=== PATIENT | male | born 1950 | race Caucasian/White ===

== ENCOUNTER → 2016-12-18 | Outpatient (CLI) | payer BC ==
[2016-12-18 13:22] LABS: Blood Urea Nitrogen 17 mg/dL (9-20); Non-African American GFR(MDRD) >60 (>60 ml/min/1.73 sqM)
--- NOTE | 2016-12-18 13:56 | CT ---
EXAMINATION TYPE: CT abdomen pelvis wo con DATE OF EXAM: 12/18/2016 1:06 PM HISTORY: Abdominal pain per order. Follow up study for known diverticulitis per patient. CT DLP: 656.1 mGycm. Automated Exposure Control for Dose Reduction was Utilized. TECHNIQUE: CT scan of the abdomen and pelvis is performed with oral but without IV contrast. COMPARISON: NONE FINDINGS: Within the limitations of a non-contrast study, the following observations are made. LUNG BASES: No significant abnormality is appreciated. LIVER/GB: Innumerable low dense lesions scattered throughout the liver consistent with simple thin-wa lled hepatic cysts. PANCREAS: No significant abnormality is seen. SPLEEN: No significant abnormality is seen. ADRENALS: No significant abnormality is seen. KIDNEYS: Kidneys are markedly enlarged in size with innumerable hypodense lesions felt to reflect sim ple cysts. There are nonobstructing renal calculi seen bilaterally with 4-5 calculi felt present, lar gest lower pole level left kidney measures 9 mm on long axis. A few hyperdense lesions are consistent with proteinaceous and/or hemorrhagic cysts, for reference lesion posteriorly lower pole level right kidney on axial image 50. BOWEL: The oral contrast reaches level of the splenic flexure. There is no suspicious small or large bowel dilatation seen. Normal-appearing appendix is seen from low-lying cecum. There is no significan t diverticulosis or CT evidence for acute diverticulitis currently. GENITAL ORGANS: Prostate gland is upper limits of normal in size. LYMPH NODES: No greater than 1cm abdominal or pelvic lymph nodes are appreciated. OSSEOUS STRUCTURES: Straightening of lumbar spine is present. OTHER: No significant additional abnormality is seen. IMPRESSION: 1. No CT evidence for acute diverticulitis currently. No suspicious acute finding is seen to account for patient's symptoms of pain. 2. CT findings consistent with adult type polycystic kidney is present as there are enlarged bilatera l kidneys with innumerable cysts and innumerable thin-walled cysts occupying majority of liver presen t.
--- NOTE | 2016-12-18 16:12 | XR ---
EXAMINATION TYPE: XR chest 2V DATE OF EXAM: 12/18/2016 1:10 PM COMPARISON: NONE HISTORY: Abdominal pain, loss of appetite and weight loss TECHNIQUE: Frontal and lateral views of the chest are obtained. FINDINGS: There is no focal air space opacity, pleural effusion, or pneumothorax seen. The cardiac silhouette size is within normal limits. The osseous structures are intact. IMPRESSION: No acute cardiopulmonary process.
== END ==
LOC: RADCTMAIN 12:33
PROVIDERS: ATTEND Surgery
DX: R10.9 Unspecified abdominal pain (principal)
CPT/HCPCS: 36415; 71020; 74176; 82565; 84520

== ENCOUNTER → 2018-01-30 | Outpatient (CLI) | payer MEDICARE ==
--- NOTE | 2018-01-30 12:55 | US ---
EXAMINATION TYPE: US duplex aorta DATE OF EXAM: 01/30/2018 COMPARISON: CT abdomen and pelvis December 18, 2016 CLINICAL HISTORY: Z87.891 Personal history of nicotine dependence. Midline abdomen pain EXAM MEASUREMENTS: Abdominal Aorta: Proximal: 2.4 x 2.3cm Mid: 1.8 x 2.2cm Distal: 1.7 x 2.2cm Right Iliac: 1.2 x 1.5cm Left Iliac: 1.0 x 1.4cm Limited study due to patient body habitus Visualized portions of abdominal aorta appear wnl Multiple cysts noted within liver and right kidney. IMPRESSION: No aneurysmal change is seen in the visualized abdominal aorta on images saved. Underlyin g polycystic kidney disease adult type is redemonstrated.
== END | disposition home or self-care (01) ==
LOC: RADUSWWP 12:13
PROVIDERS: ATTEND Family Medicine
DX: Z13.6 Encounter for screening for cardiovascular disorders (principal); Z87.891 Personal history of nicotine dependence
CPT/HCPCS: 93979

== ENCOUNTER → 2018-08-21 | Outpatient (CLI) | payer MEDICARE ==
--- NOTE | 2018-08-21 18:11 | CT ---
EXAMINATION TYPE: CT abdomen pelvis wo con DATE OF EXAM: 08/21/2018 COMPARISON: 12/18/2016 HISTORY: RUQ pain CT DLP: 1007 mGycm Automated exposure control for dose reduction was used. TECHNIQUE: Helical acquisition of images was performed from the lung bases through the pelvis. FINDINGS: Lung bases are clear. There is no pleural effusion. Heart size is normal. There is no pericardial eff usion. There is extensive cystic change throughout the liver. There are multiple cysts that measure up to 7 cm in the liver. There is similar extensive cystic replacement of the kidneys. Kidneys are enlarged d ue to extensive polycystic disease. There are bilateral multiple renal calcifications that measure up to 1 cm. Ureters do not appear dilated. There is no retroperitoneal adenopathy. Bladder distends smoothly. There is no inguinal hernia. There is no free fluid in the pelvis. I see n o evidence of a bowel obstruction. The appendix appears normal. Lumbar spine is intact. Bony pelvis i s intact. IMPRESSION: EXTENSIVE POLYCYSTIC DISEASE OF THE KIDNEYS AND LIVER. NO CHANGE COMPARED TO OLD EXAM. NUMEROUS BILAT ERAL RENAL CALCULI WITHOUT EVIDENCE OF OBSTRUCTION. NO SIGNIFICANT CHANGE COMPARED TO OLD EXAM.
== END | disposition home or self-care (01) ==
LOC: RADCTMAIN 16:54
PROVIDERS: ATTEND Family Medicine
DX: N20.0 Calculus of kidney (principal); K76.89 Other specified diseases of liver; N28.1 Cyst of kidney, acquired; J31.2 Chronic pharyngitis
CPT/HCPCS: 74176

== ENCOUNTER → 2018-09-15 | Outpatient (CLI) | payer MEDICARE ==
--- NOTE | 2018-09-15 22:50 | MR ---
EXAMINATION TYPE: MR brain wo/w con DATE OF EXAM: 09/15/2018 COMPARISON: NONE HISTORY: Abnormal findings recent CT abdomen and pelvis, polycystic kidney disease TECHNIQUE: Multiplanar, multisequence images of the brain and brainstem is performed without and with IV contras t, utilizing 9 mL intravenous Gadavist . FINDINGS: Diffusion weighted images demonstrate no evidence of a recent infarct or other diffusion ab normality. There is no worrisome extra-axial fluid signal. This ventricular and sulcal prominence co nsistent with diffuse cerebral atrophy slightly more prominent over the bilateral frontal and tempora l lobes. No significant white matter changes are present. Midline structures demonstrate normal morphology. The craniocervical junction appears within normal limits. Post contrast images demonstrate no abnormal enhancement. Codominant vertebrobasilar system is seen. No large aneurysm is identified. MRA study is noted more sensitive. The dural venous sinuses appear patent. The visualized sinuses are clear and the globes are intact. Slight erosive change ove r left frontal calvarium inner table axial image 22 is present favored benign. This can be correlated with CT if desired. IMPRESSION: 1. Mild to moderate cerebral atrophy most prominent over bilateral frontal and temporal lobes. 2. No obvious large aneurysm. CTA or MRA study is noted more sensitive.
== END ==
LOC: RADMRIMAIN 18:16
PROVIDERS: ATTEND Family Medicine
DX: G31.9 Degenerative disease of nervous system, unspecified (principal); R93.5 Abnormal findings on diagnostic imaging of other abdominal regions, including retroperitoneum
CPT/HCPCS: 82565; 70553; 36415; A9585

== ENCOUNTER 2019-05-14 08:51 | Day surgery (SDC) | payer MEDICARE ==
[2019-05-11 11:15] VITALS: BMI 28.1
[~2019-05-14 08:51] MED LIST: LACTATED RINGERS 1,000 ML IV SCH
[2019-05-14 09:26] VITALS: TEMP 98.2
[2019-05-14] MEDS ORDERED: LIDOCAINE 1% 20 ML VIAL (10MG/ML) FOR IV START INTRADERMA ONE (09:38)
[2019-05-14] MEDS ORDERED: PROPOFOL 10 MG/ML 20 ML VIAL IV ONE (10:32)
[2019-05-14] MEDS ORDERED: LIDOCAINE 1% INJ 10MG/ML (20 ML MDV) ONE (10:32)
--- NOTE | 2019-05-14 10:44 | P.PCN ---
Date of Procedure: 05/14/19 Procedure(s) Performed: BRIEF HISTORY: Patient is a 69-year-old, pleasant, male, scheduled for an upper endoscopy as a part of evaluation of intermittent episodes of epigastric discomfort and long-standing history of GERD. He took Prilosec in the past and had some side effects and stopped the medication a few months ago. Severe diet modification. PROCEDURE PERFORMED: Esophagogastroduodenoscopy with biopsy. PREOPERATIVE DIAGNOSIS: Epigastric discomfort/long-standing history of GERD. IV sedation per anesthesia. PROCEDURE: After informed consent was obtained, the patient was brought into the endoscopy unit. IV sedation was administered by Anesthesia under continuous monitoring. Initially the Olympus GIF-140 video endoscope was inserted into the mouth. Esophagus intubated without any difficulty. It was gradually advanced into the stomach and duodenum and carefully examined. The bulb and the second part of the duodenum appeared normal. The scope at this time was withdrawn to the stomach, adequately insufflated with air, and upon careful examination, mucosa of the antrum, body, cardia and the fundus appeared normal. Multiple small gastric polyps noted in the proximal body the stomach which was biopsied. The scope was then withdrawn into the esophagus. The GE junction was located at 39 cm from the incisors. The esophagus appeared normal. There were no erosions or ulcerations seen, biopsies were done from the distal esophagus and the patient tolerated the procedure well. IMPRESSION: 1. Multiple small gastric polyps. 2. No evidence of esophagitis or peptic ulcer disease. RECOMMENDATIONS: The findings of this examination were discussed with the patient as well as his family. He was advised to follow with the biopsy results. He will use [id number] H2 blockers or antacids as needed for her symptoms..
[2019-05-14 11:04] VITALS: BP 115/77; PULSE 90; RESP 16
== END 2019-05-14 11:45 | disposition home or self-care (01) ==
LOC: ORWHC2ENDO 08:51
PROVIDERS: ATTEND Internal Medicine Gastroenterology
DX: K31.7 Polyp of stomach and duodenum (principal); K21.9 Gastro-esophageal reflux disease without esophagitis; R10.13 Epigastric pain; I10 Essential (primary) hypertension; J45.909 Unspecified asthma, uncomplicated; N42.9 Disorder of prostate, unspecified; Q61.3 Polycystic kidney, unspecified; G31.9 Degenerative disease of nervous system, unspecified; K76.9 Liver disease, unspecified; Z88.0 Allergy status to penicillin; Z88.2 Allergy status to sulfonamides; Z88.5 Allergy status to narcotic agent; Z91.041 Radiographic dye allergy status; Z79.899 Other long term (current) drug therapy
CPT/HCPCS: 88305; 43239; J2001; J2704

== ENCOUNTER → 2021-02-16 | Outpatient (CLI) | payer MEDICARE ==
--- NOTE | 2021-02-16 15:37 | US ---
EXAMINATION TYPE: US kidneys/renal and bladder DATE OF EXAM: 02/16/2021 COMPARISON: CLINICAL HISTORY: R31.9 hematuria. Macroscopic hematuria. No pain. Hx polycystic liver and polycyst ic kidney disease. EXAM MEASUREMENTS: Right Kidney: 16.8 x 9.3 x 9.9 cm Left Kidney: 22.5 x 10.8 x 8.6 cm Right Kidney: Severely enlarged kidney with multiple cysts seen throughout with limited visualization of cortical tissue. Largest cyst lower pole = 9.7 x 9.9 x 8.7 cm. Multiple echogenic foci seen, la rgest= 0.7 cm. Left Kidney: Severely enlarged kidney with multiple cysts seen throughout with limited visualization of cortical tissue. Largest cyst= 10.1 x 8.7 x 7.2 cm. Multiple echogenic foci seen, largest= 0.8 c m. Bladder: distended, anechoic Bilateral Jets seen IMPRESSION: Enlarged multicystic kidneys with likely nephrolithiasis. It is impossible to exclude solid renal maryann plasm. MR with and without contrast could be performed for further evaluation if clinically warranted .
== END | disposition home or self-care (01) ==
LOC: RADUSWWP 14:53
PROVIDERS: ATTEND Family Medicine
DX: Q61.3 Polycystic kidney, unspecified (principal)
CPT/HCPCS: 76770

== ENCOUNTER → 2021-03-16 | Outpatient (CLI) | payer MEDICARE ==
--- NOTE | 2021-03-17 03:06 | MR ---
EXAMINATION TYPE: MR kidney wo/w con DATE OF EXAM: 03/16/2021 COMPARISON: None HISTORY: Disorder of kidney and ureter, blood in urine, history of kidney stones. CONTRAST: Standard multiplanar, multisequence MRI departmental protocol utilizing 8 mL intravenous Gadavist farzaneh olinium contrast. There are numerous cysts throughout both kidneys. These are of variable size and measure up to almost 8 cm and consistent with advanced at all type polycystic kidney disease. There are numerous cysts th roughout the liver which appears enlarged. I do not see any thick walled cyst. Some of the smaller cy sts have increased signal on the T1 images that is consistent with proteinaceous fluid. There is no p athologic renal enhancement. There is no evidence of adrenal mass. I see no retroperitoneal adenopath y. I see no obvious hydronephrosis. There is no ascites. There is no evidence of pancreatic mass. Law creatic duct appears normal. Visualized spleen appears intact. IMPRESSION: Advanced polycystic kidney disease. Advanced polycystic liver disease. No suspicious renal mass. Gisselle l cysts appear not significantly different than old abdomen CT scan 08/21/2018. Renal collecting syst ems are difficult to evaluate. No obvious hydronephrosis.
== END | disposition home or self-care (01) ==
LOC: RADMRIMAIN 18:41
PROVIDERS: ATTEND Family Medicine
DX: Q61.3 Polycystic kidney, unspecified (principal); N28.9 Disorder of kidney and ureter, unspecified
CPT/HCPCS: 74183; A9585

== ENCOUNTER 2022-01-28 00:37 | Emergency (ER) | payer MEDICARE ==
[2022-01-28 00:58] VITALS: RESP 19; TEMP 97.9
--- NOTE | 2022-01-28 01:23 | ED ---
Back Pain HPI - General Chief Complaint: Back Pain/Injury Stated Complaint: Rt Shoulder/Neck Pain Time Seen by Provider: 01/28/22 00:46 Source: patient, RN notes reviewed Limitations: no limitations - History of Present Illness Initial Comments: This is a 71 year old male who presents to the emergency department for right shoulder pain, chest pain, and shortness of breath. Patient states that he feels himself becoming progressively more short of breath with exertion and has had episodes of chest pain, however this has been an ongoing issue for him. Yesterday he had some pain on the posterior aspect of the right shoulder. Today when he woke up he states it was significantly worse. He does note that yesterday he was exercising and doing pushups, and wonders if he may have a muscular strain that is causing his pain. The pain comes and goes with intermittent bouts of radiation down the right arm terminating at the elbow. He would almost describe the pain behind his shoulder as a knot. He is unable to take most medications, particularly NSAIDs and narcotics due to polycystic liver and kidney disease. He does take Tylenol and has already taken 2g today. Denies any fevers, chills, sore throat, cough, palpitations, abdominal pain, nausea, vomiting, diarrhea, back pain, or headaches. MD Complaint: back pain Onset/Timin -: days(s) Treatments Prior to Arrival: acetaminophen - Related Data Home Medications Medication Instructions Recorded Confirmed Finasteride [Proscar] 5 mg PO HS 05/11/19 11/27/21 Tamsulosin HCl [Flomax] 0.4 mg PO 1700 05/11/19 11/27/21 Famotidine [Pepcid] 40 mg PO DAILY 11/23/21 11/27/21 Sennosides [Ex-Lax Maximum 12.5 mg PO DAILY PRN 11/23/21 11/27/21 Strength] amLODIPine [Norvasc] 5 mg PO BID 11/23/21 11/27/21 polyethylene glycoL 3350 [Miralax] 17 gm PO DAILY PRN 11/23/21 11/27/21 Previous Rx's Medication Instructions Recorded Lidocaine 5% Patch [Lidoderm 5% 1 patch TOPICAL DAILY PRN #30 patch 01/28/22 Patch] Metaxalone [Skelaxin] 400 mg PO TID PRN #20 tablet 01/28/22 Allergies Allergy/AdvReac Type Severity Reaction Status Date / Time Iodinated Contrast Media Allergy Dyspnea Verified 01/28/22 00:57 [Iodinated Contrast- Oral and IV Dye] lisinopril Allergy Swelling Verified 01/28/22 00:57 metronidazole [From Flagyl] Allergy severe Verified 01/28/22 00:57 diarrhea,metal taste in mouth Penicillins Allergy Unknown Verified 01/28/22 00:57 Childhood Sulfa (Sulfonamide Allergy Rash/Hives Verified 01/28/22 00:57 Antibiotics) codeine AdvReac Abdominal Verified 01/28/22 00:57 Pain Review of Systems ROS Statement: Those systems with pertinent positive or pertinent negative responses have been documented in the HPI. ROS Other: All systems not noted in ROS Statement are negative. Past Medical History Past Medical History: Asthma, GERD/Reflux, Hypertension, Liver Disease, Prostate Disorder, Renal Disease Additional Past Medical History / Comment(s): POLY CYSTIC KIDNEY AND LIVER DISEASE, IBS, UMBILICAL HERNIA,diverticulitis,chronic constipation History of Any Multi-Drug Resistant Organisms: None Reported Past Surgical History: No Surgical Hx Reported Additional Past Surgical History / Comment(s): nasal surgery Past Anesthesia/Blood Transfusion Reactions: No Reported Reaction Past Psychological History: No Psychological Hx Reported Smoking Status: Former smoker Past Alcohol Use History: None Reported Past Drug Use History: None Reported - Past Family History Mother Family Medical History: No Reported History General Exam Limitations: no limitations General appearance: alert, in no apparent distress Head exam: Present: atraumatic, normocephalic, normal inspection Respiratory exam: Present: normal lung sounds bilaterally. Absent: respiratory distress, wheezes, rales, rhonchi, stridor, chest wall tenderness Cardiovascular Exam: Present: regular rate, normal rhythm, normal heart sounds. Absent: systolic murmur, diastolic murmur, rubs, gallop, clicks Extremities exam: Present: other (Tenderness in the posterior aspect of the right shoulder is intermittently reproducible with elevation of the arm. Full ROM of the arm.) Neurological exam: Present: alert, oriented X3, CN II-XII intact Psychiatric exam: Present: normal affect, normal mood Skin exam: Present: warm, dry, intact, normal color. Absent: rash Course Vital Signs 01/28/22 01/28/22 01/28/22 00:53 01:47 02:00 Temperature 97.9 F Pulse Rate 79 84 Respiratory 19 Rate Blood Pressure 134/88 129/84 O2 Sat by Pulse 97 97 97 Oximetry Medical Decision Making - Medical Decision Making This is a 71-year-old male who presents to the emergency department for right arm/shoulder pain, chest pain, and shortness of breath. I was able to reproduce the shoulder pain twice on examination. Given the chest pain and shortness of breath, will obtain chest x-ray and EKG. x-ray of the chest and shoulder revealed no actionable findings to explain the patient's symptoms. EKG was unremarkable. Patient has no kidney or liver function lab results in this computer system. Patient declines to receive any new blood work today, and states that he received blood work approximately a month ago and was told that his liver and kidney function were normal at that time. We did discuss that in the event this were related to a cardiac problem, blood work such as a troponin could provide further insight. Patient expresses understanding but again declines. Symptoms are most likely related to a muscular strain given that they are reproducible and he did exercise earlier today. Patient did not want to receive a muscle relaxer in the emergency department due to the sedating effects and he is unable to take NSAIDs. States that he already took Tylenol today. Lidocaine patch was applied. Patient states that he has Valium at home. He declines a starter pack for Flexeril and states that Valium works better as a muscle relaxant. Advised he take this tonight. Prescription for Skelaxin sent to the pharmacy, this is shown to be safer in individuals over 65 and is better for those with liver and kidney problems. Advised he pick this up tomorrow and see if it is more effective than the Valium. He can decide if he prefers the Valium or Skelaxin. Prescription for lidocaine patches were also sent to the pharmacy. He can continue to take Tylenol and I advised he apply heat to the affected area. Return precautions reviewed in depth, the patient is instructed to return to the emergency department with any new, worsening, or concerning symptoms. Patient verbalized understanding. This case was discussed in detail with the attending ED physician. Presentation, findings, and treatment plan discussed in detail as well. - EKG Data EKG Comments: Sinus rhythm. Ventricular rate 75 bpm, IL interval 185 ms, QRS duration 92 ms, QTC 431 ms. - Radiology Data Radiology results: report reviewed, image reviewed Disposition Clinical Impression: Muscle strain of right upper back Disposition: HOME SELF-CARE Instructions (If sedation given, give patient instructions): Cervical Strain (ED), Muscle Strain (ED) Additional Instructions: Return to the emergency department with any new, worsening, or concerning symptoms. Take the Valium for pain relief tonight. Try the Skelaxin tomorrow which will be your pharmacy and use whichever medication works better for you. Lidocaine patches are also prescribed to be used as needed for pain relief. Apply heat to the affected area as well. Follow up with your primary care provider in 1-2 days. Prescriptions: Lidocaine 5% Patch [Lidoderm 5% Patch] 1 patch TOPICAL DAILY PRN #30 patch PRN Reason: Pain Metaxalone [Skelaxin] 400 mg PO TID PRN #20 tablet PRN Reason: Pain Is patient prescribed a controlled substance at d/c from ED?: No Referrals: Chuy Walker MD [Primary Care Provider] - 1-2 days
[2022-01-28 01:48] VITALS: BP 129/84; PULSE 84
--- NOTE | 2022-01-28 02:06 | XR ---
EXAMINATION TYPE: XR chest 2V DATE OF EXAM: 01/28/2022 COMPARISON: 12/18/2016 HISTORY: Short of breath TECHNIQUE: FINDINGS: There is slight elevated right diaphragm. Heart and mediastinum are normal. Costophrenic an gles are fairly clear. Bony thorax is intact. IMPRESSION: Mild elevation of the right diaphragm. Inspiration slightly decreased compared to old exa m. Normal heart.
--- NOTE | 2022-01-28 02:07 | XR ---
EXAMINATION TYPE: XR shoulder complete RT DATE OF EXAM: 01/28/2022 COMPARISON: NONE HISTORY: Shoulder pain TECHNIQUE: 3 views FINDINGS: I see no fracture nor dislocation. Joint spaces are normal. There are no pathologic calcifi cations. IMPRESSION: Negative right shoulder exam.
[2022-01-28] MEDS ORDERED: CYCLOBENZAPRINE 10MG STARTER 3 TAB BTL PO STA (02:31)
[2022-01-28] MEDS ORDERED: LIDOCAINE 5% PATCH TOPICAL SCH (09:00)
== END 2022-01-28 03:00 | disposition home or self-care (01) ==
LOC: EC 00:37
DX: S29.012A Strain of muscle and tendon of back wall of thorax, initial encounter (principal); I10 Essential (primary) hypertension; J45.909 Unspecified asthma, uncomplicated; K21.9 Gastro-esophageal reflux disease without esophagitis; Z87.891 Personal history of nicotine dependence; Z88.0 Allergy status to penicillin; Z88.1 Allergy status to other antibiotic agents; Z88.2 Allergy status to sulfonamides; Z88.5 Allergy status to narcotic agent; X58.XXXA Exposure to other specified factors, initial encounter
CPT/HCPCS: 71046; 93005; 99285

== ENCOUNTER → 2023-04-08 | Outpatient (CLI) | payer MEDICARE ==
--- NOTE | 2023-04-08 09:27 | XR ---
EXAMINATION TYPE: XR KUB DATE OF EXAM: 04/08/2023 HISTORY: Pain Comparison: None.Single KUB is submitted for interpretation. Findings: Right renal calculi: There is a 5.4 mm calculus overlying the mid to upper pole of the right kidney. Right ureteral calculi: None Visualized. Left renal calculi: None Visualized. Left ureteral calculi: None Visualized. Pelvic calcifications: Phlebolith noted within the left hemipelvis. Bowel gas pattern is unremarkable. No free air. No mass effects. IMPRESSION: 1. There is a 5.4 mm calculus overlying the mid to upper pole of the right kidney.
== END | disposition home or self-care (01) ==
LOC: RADXRMAIN 08:38
PROVIDERS: ATTEND Urology
DX: N20.0 Calculus of kidney (principal)
CPT/HCPCS: 74018

== ENCOUNTER → 2024-05-06 | Outpatient (CLI) | payer MEDICARE ==
--- NOTE | 2024-05-06 11:29 | XR ---
EXAMINATION TYPE: Abdominal KUB single view DATE OF EXAM: 05/06/2024 COMPARISON: 04/08/2023 HISTORY: Pain TECHNIQUE: One view abdominal series FINDINGS: There is a 5 mm right renal calcification. Linear calcification overlying the left kidney measuring 3 mm likely represents a left-sided nephrolithiasis and stable. Vague calcifications in the pelvis are most likely vascular. Hypertrophic SI and hip arthropathy. Deg enerative changes spine. No evidence of bowel obstruction. IMPRESSION: 1. Bilateral nephrolithiasis stable. 2. No definitive ureteral calculus identified on today's exam. Favor calcifications in the pelvis are vascular.
== END | disposition home or self-care (01) ==
LOC: RADXRMAIN 10:55
PROVIDERS: ATTEND Urology
DX: N20.2 Calculus of kidney with calculus of ureter (principal)
CPT/HCPCS: 74018

== ENCOUNTER → 2024-06-09 | Outpatient (CLI) | payer MEDICARE ==
--- NOTE | 2024-06-09 17:15 | MR ---
EXAMINATION TYPE: MR brain wo con DATE OF EXAM: 06/09/2024 4:47 PM COMPARISON: MR brain 09/15/2018. 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 No gadolinium was gi ruth. FINDINGS: The daniel-white junctions, ventricular system, and cisterns appear unremarkable. Prominence of the per ipheral sulci due to cerebral volume loss. This again most prominent over the bilateral frontal and t emporal lobes. Not significantly changed from prior examination. No significant white matter changes again present. Midline structures show no abnormality. Diffusion-weighted imaging shows no evidence o f restricted diffusion. The susceptibility weighted images do not reveal any evidence for micro-hemor rhage. Limited examination due to lack of intravenous contrast with no gross evidence of large aneury sm. No significant change in slightly erosive change or the left frontal calvarium inner table. Favored t o be benign. The remaining bone marrow signal is within normal limits. The paranasal sinuses and glob es are unremarkable. IMPRESSION: 1. No evidence of intracranial mass or acute/subacute infarct. 2. Similar mild to moderate cerebral atrophy most prominent over the bilateral frontal and temporal l obes. 3. No obvious large aneurysm however examination is limited due to lack of intravenous contrast. CTA or MRA is more sensitive. [facility], , 06/09/2024 5:13 PM
== END | disposition home or self-care (01) ==
LOC: RADMRIMAIN 15:49
PROVIDERS: ATTEND Psychiatry & Neurology Neurology
DX: I72.9 Aneurysm of unspecified site
CPT/HCPCS: 70551

== ENCOUNTER → 2024-06-23 | Outpatient (CLI) | payer MEDICARE ==
--- NOTE | 2024-06-23 09:04 | MR ---
EXAMINATION TYPE: MR angio head wo con DATE OF EXAM: 06/23/2024 COMPARISON: MR brain 06/09/2024, 09/15/2018 HISTORY: Nose and Jaw pain TECHNIQUE: Time of flight images focusing on the [place] were performed without contrast. FINDINGS: There is no evidence for focal stenosis, large vessel occlusion, or discrete aneurysm. Mi ld to moderate cerebral atrophy most prominent over the bilateral frontal and temporal lobes redemons trated. IMPRESSION: No evidence for focal stenosis, occlusion or aneurysm. [facility], , 06/23/2024 9:01 AM
== END | disposition home or self-care (01) ==
LOC: RADMRIMAIN 07:19
PROVIDERS: ATTEND Psychiatry & Neurology Neurology
CPT/HCPCS: 70544